=== PATIENT | male | born 1970 | race Native Hawaiian/Other Pacific Islander ===

== ENCOUNTER 2018-07-01 09:15 | Inpatient (IN) | payer MEDICAID ==
[2018-07-01] MEDS ORDERED: Sodium Chloride 0.9% 1,000 ML IV ONE (09:51)
[2018-07-01] MEDS ORDERED: Sodium Chloride 0.9% 1,000 ML ONE (10:00)
[2018-07-01 10:09] LABS: BASO % 0.5 % (0.0-2.0); EOS # 0.1 K/uL (0.0-0.7); EOS % 2.6 % (0.0-4.0); HEMOGLOBIN 14.9 g/dL (12.0-18.0); LYMPH # 2.2 K/uL (1.0-4.3); LYMPH % 52.2 % (20.0-40.0); MEAN CELL VOLUME 82.9 fL (80.0-94.0); MEAN CORPUSCULAR HGB CONC 33.7 g/dL (33.0-37.0); MEAN PLATELET VOLUME 8.4 fL (7.2-11.7); MONO # 0.6 K/uL (0.0-0.8); MONO % 15.1 % (0.0-10.0); NEUT # 1.2 K/uL (1.8-7.0); NEUT % 29.6 % (50.0-75.0); NRBC % 0.2 % (0.0-2.0); RBC 5.32 Mil/uL (4.40-5.90); RED CELL DISTRIBUTION WIDTH 12.7 % (11.5-14.5); WHITE BLOOD COUNT 4.2 K/uL (4.8-10.8)
[2018-07-01 10:17] LABS: INR 1.1; PROTHROMBIN TIME 12.2 SECONDS (9.7-12.2)
[2018-07-01 10:27] LABS: ALB/GLOB RATIO 1.3 (1.0-2.1); ALBUMIN 4.3 g/dL (3.5-5.0); ALT/SGPT 28 U/L (21-72); AST/SGOT 35 U/L (17-59); BLOOD UREA NITROGEN 16 mg/dL (9-20); CALCIUM 9.2 mg/dl (8.6-10.4); GFR NON-AFRICAN AMERICAN > 60; LIPASE 56 U/L (23-300)
--- NOTE | 2018-07-01 11:26 | RAD ---
HISTORY: abd pain COMPARISON: None available. TECHNIQUE: Chest, one view. FINDINGS: LUNGS: Hypoinflation. No focal consolidation. Please note that chest x-ray has limited sensitivity for the detection of pulmonary masses. PLEURA: No significant pleural effusion identified. No definite pneumothorax . CARDIOVASCULAR: Heart size appears top normal. No significant atherosclerotic calcification present. OSSEOUS STRUCTURES: Degenerative changes. VISUALIZED UPPER ABDOMEN: Unremarkable. OTHER FINDINGS: None. IMPRESSION: Hypoinflation.
--- NOTE | 2018-07-01 11:38 | C.PDOC ---
History Of Present Illness 48 y/o male presents to ED for admission for ventral hernia repair. Patient states hes had this hernia for 2 months now but the pain is increasing. He also complains of mild nausea but no vomiting. He is able to tolerate PO, last PO intake was last night. Denies any other complaints. Time Seen by Provider: 07/01/18 09:35 Chief Complaint (Nursing): Abdominal Pain History Per: Patient History/Exam Limitations: no limitations Onset/Duration Of Symptoms: Days Current Symptoms Are (Timing): Still Present Past Medical History Reviewed: Historical Data, Nursing Documentation, Vital Signs Vital Signs: Last Vital Signs Temp 98.5 F 07/01/18 09:29 Pulse 59 L 07/01/18 09:29 Resp 18 07/01/18 09:29 BP 113/70 07/01/18 09:29 Pulse Ox 98 07/01/18 09:29 Family History: States: No Known Family Hx - Social History Hx Alcohol Use: No Hx Substance Use: No - Immunization History Hx Tetanus Toxoid Vaccination: No Hx Influenza Vaccination: No Hx Pneumococcal Vaccination: No Review Of Systems Except As Marked, All Systems Reviewed And Found Negative. Constitutional: Negative for: Fever, Chills Cardiovascular: Negative for: Chest Pain Respiratory: Negative for: Shortness of Breath Gastrointestinal: Positive for: Nausea, Other (ventral hernia). Negative for: Vomiting, Diarrhea Genitourinary: Negative for: Dysuria Physical Exam - Physical Exam Appears: Non-toxic, No Acute Distress Skin: Warm, Dry Head: Atraumatic, Normacephalic Eye(s): bilateral: Normal Inspection Oral Mucosa: Moist Neck: Supple Cardiovascular: Rhythm Regular, No Murmur Respiratory: Normal Breath Sounds, No Rales, No Rhonchi, No Wheezing Gastrointestinal/Abdominal: Bowel Sounds (normal), Soft, Hernia ((+) ventral hernia) Extremity: Bilateral: Atraumatic, Normal ROM Neurological/Psych: Oriented x3, Normal Speech Gait: Steady ED Course And Treatment - Laboratory Results Result Diagrams: 07/01/18 09:57 07/01/18 09:57 Lab Results: PT 12.2 SECONDS (9.7-12.2) 07/01/18 09:57 INR 1.1 07/01/18 09:57 APTT 32 SECONDS (21-34) 07/01/18 09:57 Total Bilirubin 2.5 mg/dL (0.2-1.3) H 07/01/18 09:57 AST 35 U/L (17-59) 07/01/18 09:57 ALT 28 U/L (21-72) 07/01/18 09:57 Alkaline Phosphatase 98 U/L (38-126) 07/01/18 09:57 Total Protein 7.6 g/dL (6.3-8.3) 07/01/18 09:57 Albumin 4.3 g/dL (3.5-5.0) 07/01/18 09:57 Globulin 3.3 gm/dL (2.2-3.9) 07/01/18 09:57 Albumin/Globulin Ratio 1.3 (1.0-2.1) 07/01/18 09:57 Lipase 56 U/L (23-300) 07/01/18 09:57 ECG: Interpreted By Me, Viewed By Me ECG Rhythm: Sinus Rhythm Interpretation Of ECG: Normal axis. Normal intervals. Rate From EC O2 Sat by Pulse Oximetry: 98 (RA) Pulse Ox Interpretation: Normal - Other Rad CXR X-Ray: Read By Radiologist Interpretation: FINDINGS: LUNGS: Hypoinflation. No focal consolidation. Plea se note that chest x-ray has limited sensitivity for the detection of pulmonary masses. PLEURA: No significant pleural effusion identified. No definite pneumothorax . CARDIOVASCULAR: Heart size appears top normal. No significant atherosclerotic calcification present. OSSEOUS STRUCTURES: Degenerative changes. VISUALIZED UPPER ABDOMEN: Unremarkable. OTHER FINDINGS: None. IMPRESSION: Hypoinflation. Medical Decision Making Medical Decision Making: Plan: --Lab --Chest XR --IV fluids 1L Spoke to Dr. Yfn Sawyer, will admit to his service. Disposition - Disposition Disposition: HOSPITALIZED Disposition Time: 10:30 Condition: STABLE - Clinical Impression Clinical Impression: Ventral hernia, Abdominal pain - Scribe Statement The provider has reviewed the documentation as recorded by the Susan Maldonado Provider Attestation: All medical record entries made by the Jaylonibpao were at my direction and perso nette dictated by me. I have reviewed the chart and agree that the record accurately reflects my personal performance of the history, physical exam, medical decision making, and the department course for this patient. I have also personally directed, reviewed, and agree with the discharge instructions and disposition.
[2018-07-01] MEDS ORDERED: ceFAZolin 1 gm in NS 2 GM/200 ML BAG IVPB ONE (13:50)
[2018-07-01] MEDS ORDERED: Bupivacaine 0.25% 20 ML INJ IJ ONE (13:51)
[2018-07-01] MEDS ORDERED: Lidocaine Hydrochloride 0 ML INJ ONE (13:51)
[2018-07-01] MEDS ORDERED: Midazolam 2 MG/2 ML VIAL ONE (14:09)
[2018-07-01] MEDS ORDERED: Propofol 10 mg/ml Inj (20 ML) ONE (14:09)
[2018-07-01] MEDS ORDERED: Lidocaine Hydrochloride 5 ML INJ ONE (14:22)
[2018-07-01] MEDS ORDERED: Succinylcholine Chloride 20 mg/ml Syr (5 ml) IV ONE (14:22)
[2018-07-01] MEDS ORDERED: Rocuronium 10 mg/ml (5 ml) ONE (14:22)
[2018-07-01] MEDS ORDERED: Oxycodone/Acetaminophen 5/325 mg Tab PO PRN (15:09)
[2018-07-01] MEDS ORDERED: HYDROmorphone 0.5 mg/0.5 ml ISec IVP PRN (15:26)
[2018-07-01] MEDS ORDERED: HYDROmorphone 0.5 mg/0.5 ml ISec ONE (15:32)
[2018-07-01 16:48] VITALS: BP 111/70; PULSE 73; RESP 20; TEMP 98.1
[2018-07-01 18:20] VITALS: O2SAT 98
--- NOTE | 2018-07-02 06:45 | OP ---
PROCEDURE DATE: 07/01/2018 PREOPERATIVE DIAGNOSIS: Incarcerated ventral hernia. POSTOPERATIVE DIAGNOSIS: Abdominal wall soft tissue tumors x2. SURGEON: Nilesh Bronson MD ANESTHESIA: General. BLOOD LOSS: 20 mL. POSTOPERATIVE CONDITION: Stable. INDICATIONS FOR SURGERY: This is a 48-year-old male with a history of an apparent painful ventral hernia in his upper abdomen who is now admitted to the ER for repair. GROSS FINDINGS: Upon exploration what appeared to be an incarcerated ventral hernia, there were actually two separate abdominal wall soft tissue tumors, one measuring 5 cm and one measuring 4 cm which appeared to be lipomas. There were no other abnormal findings. DESCRIPTION OF PROCEDURE: The patient was taken to the operating room. General anesthesia was administered. The abdomen was prepped and draped. A transverse incision was made over the epigastric mass in the left upper quadrant. It appeared to be two hernia sacs were encountered; however upon tracing hernia sacs, they did not involve fascial defect and in fact there were two large lipomas. They were completely excised and removed. Bleeding was controlled using the Bovie. The wound was irrigated with saline. A simple closure was performed with Vicryl and skin clips. The patient tolerated the procedure well and returned to recovery room in stable condition. Nilesh Bronson MD
== END 2018-07-01 18:45 | disposition home or self-care (01) | DRG 160 ==
LOC: C.ER 09:15 → C.9E 11:01 → C.6T 12:04
PROVIDERS: ADMIT Internal Medicine Pulmonary Disease; ATTEND Internal Medicine Pulmonary Disease
PROC: 0JB80ZZ Excision of Abdomen Subcutaneous Tissue and Fascia, Open Approach (ICD-10-PCS; 2018-07-01)
PROC: 0WQF0ZZ Repair Abdominal Wall, Open Approach (ICD-10-PCS; principal; 2018-07-01 12:00)
DX: K43.6 Other and unspecified ventral hernia with obstruction, without gangrene (principal); D17.1 Benign lipomatous neoplasm of skin and subcutaneous tissue of trunk